=== PATIENT | male | born 1980 | race Caucasian/White ===

== ENCOUNTER 2016-11-24 22:05 | Emergency (ER) | payer OTHER ==
[~2016-11-24] VITALS: Ht 180.3 cm; Wt 99.8 kg
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
[~2016-11-24 22:05] MED LIST: LATUDA80 MG PO
== END 2016-11-25 01:00 | disposition home or self-care (01) ==
LOC: CED 22:05
DX: S80.02XA Contusion of left knee, initial encounter (principal); S40.022A Contusion of left upper arm, initial encounter; S40.021A Contusion of right upper arm, initial encounter; F17.200 Nicotine dependence, unspecified, uncomplicated; Z88.2 Allergy status to sulfonamides; Z88.8 Allergy status to other drugs, medicaments and biological substances; V09.9XXA Pedestrian injured in unspecified transport accident, initial encounter
CPT/HCPCS: 29530; 73560; 99283